=== PATIENT | female | born 1990 | race Caucasian/White ===

== ENCOUNTER 2016-09-11 18:45 | Emergency (ER) | payer BC ==
[2016-09-11] MEDS ORDERED: Ondansetron ODT TAB* 4 MG PO ONE ×2 (18:55→22:16)
[2016-09-11] MEDS ORDERED: Metoclopramide IV* 5 MG/ML 2 ML VIAL IV ONE (19:22)
[2016-09-11] MEDS ORDERED: NS 0.9% 1000 ML* 1,000 ML IV SCH ×2 (19:30→21:30)
--- NOTE | 2016-09-11 20:45 | UC ---
Abdominal Pain Female HPI - HPI Summary HPI Summary: SUDDEN ONSET OF N/V/D AT 1:30PM TODAY AFTER EATING AT [employer] THIS MORNING. HAS WAVES OF ABDOMINAL PAIN AND CRAMPING. CAN NOT KEEP ANYTHING DOWN MY MOUTH. IS HEAVING AND GAGGING. NO FEVER. - History of Current Complaint Chief Complaint: UCGI Stated Complaint: VOMITING, AND SHORTNESS OF BREATH Time Seen by Provider: 09/11/16 18:54 Hx Obtained From: Patient, Family/Driveway Sealer - AUNT Hx Last Menstrual Period: 1 weeka ago Onset/Duration: Sudden Onset, Lasting Hours, Still Present Timing: Constant Severity Initially: Moderate Severity Currently: Severe Pain Intensity: 8 Pain Scale Used: 0-10 Numeric Location: Diffuse Radiates: No Character: Cramping, Sharp Aggravating Factor(s): Nothing Alleviating Factor(s): Nothing Associated Signs and Symptoms: Positive: Back Pain, Decreased Appetite, Nausea, Vomiting, Diarrhea. Negative: Fever, Cough, Urinary Symptoms Allergies/Adverse Reactions: Allergies Allergy/AdvReac Type Severity Reaction Status Date / Time DUST MITE PROTEINS Allergy Itching Uncoded 04/08/16 19:09 Seasonl and Environmentasl Allergy Congestion Uncoded 09/11/16 19:05 Allergie PMH/Surg Hx/FS Hx/Imm Hx Previously Healthy: Yes Endocrine History Of: Denies: Diabetes, Thyroid Disease Cardiovascular History Of: Denies: Cardiac Disorders, Hypertension Respiratory History Of: Denies: COPD, Asthma GI/ History Of: Denies: Ulcer - Surgical History Surgical History: Yes Surgery Procedure, Year, and Place: TONSILS - Family History Known Family History: Positive: Hypertension, Diabetes Negative: Cardiac Disease - Social History Alcohol Use: None Substance Use Type: None Smoking Status (MU): Never Smoked Tobacco Review of Systems Constitutional: Negative Respiratory: Negative Cardiovascular: Negative Gastrointestinal: Abdominal Pain, Vomiting, Diarrhea, Other - NAUSEA Genitourinary: Negative All Other Systems Reviewed And Are Negative: Yes Physical Exam Triage Information Reviewed: Yes Appearance: Well-Nourished, Pain Distress - MODERATE - BREATHING HEAVILY, RETCHING, CLUTCHING BELLY Vital Signs: Initial Vital Signs Temp 97.5 F 09/11/16 18:56 Pulse 100 09/11/16 18:56 Resp 20 09/11/16 18:56 BP 108/80 09/11/16 18:56 Pulse Ox 100 09/11/16 18:56 Vital Signs Reviewed: Yes Eyes: Positive: Conjunctiva Clear ENT: Positive: Hearing grossly normal Neck: Positive: Supple Respiratory Exam: Normal Cardiovascular: Positive: Tachycardia Abdomen Description: Positive: Soft, Guarding - VOLUNTARY, Other: - MILDLY TENDER DIFFUSELY. Negative: CVA Tenderness (R), CVA Tenderness (L), Distended Bowel Sounds: Positive: Present Musculoskeletal: Positive: No Edema Neurological: Positive: Alert Psychological: Positive: Normal Response To Family, Age Appropriate Behavior Re-Evaluation - Re-Evaluation First Eval Re-Evaluation Time: 20:43 - FEELS BETTER AFTER 10MG REGLAN IV AND 600ML NS. RETCHING, GAGGING, WAVES OF ABDOMINAL PAIN RESOLVED Change: Improved Second Eval Re-Evaluation Time: 21:35 - REQUESTING ANOTHER 1L NS Change: Improved Third Eval Re-Evaluation Time: 22:05 - MUCH BETTER AFTER 2ND L NS. READY FOR D/C HOME Change: Improved Abd Pain Female Course/Dx - Course Course Of Treatment: PT FEELS MUCH IMPROVED AFTER 2L NS AND 10MG REGLAN. ADVISED CLEAR LIQUIDS AND BLAND DIET. NOTE FOR WORK PROVIDED. ZOFRAN NEEDED. FOLLOW-UP IF NOT CONTINUING TO IMPROVE. - Differential Dx/Diagnosis Provider Diagnoses: ACUTE GASTROENTERITIS Discharge - Discharge Plan Condition: Stable Disposition: HOME Prescriptions: Ondansetron ODT TAB* [Zofran Odt TAB*] 4 mg PO Q6H PRN #20 tab.odt PRN Reason: Nausea/Vomiting Patient Education Materials: Gastroenteritis (ED), Acute Nausea and Vomiting ( ED) Forms: *Work Release Additional Instructions: ENSURE ADEQUATE HYDRATION. CLEAR LIQUIDS, BLAND DIET. AVOID CAFFEINE, DAIRY, GREASY, SPICY FOODS. ONCE YOU ARE TOLERATING CLEAR LIQUIDS YOU CAN ADVANCE TO SIMPLE, BLAND FOODS. CALL THE NUMBER BELOW FOR ASSISTANCE IN ESTABLISHING WITH A PCP An additional resource available to assist in finding the appropriate physician for your health care needs is the [facility] ([facility]). You may contact them by calling [phone].
[2016-09-11 22:42] VITALS: BP 111/59
== END 2016-09-11 23:18 | disposition left against medical advice (07) ==
LOC: UCEAST 18:45
DX: K52.9 Noninfective gastroenteritis and colitis, unspecified (principal)
CPT/HCPCS: 96360; 96361; 96374; 99213; G0463

== ENCOUNTER 2016-09-11 23:28 | Emergency (ER) | payer BC ==
[2016-09-12] MEDS ORDERED: NS 0.9% 1000 ML* 2,000 ML IV ONE (01:14)
--- NOTE | 2016-09-12 01:39 | ED ---
Abdominal Pain/Female - HPI Summary HPI Summary: Patient presents with nausea, vomiting and diarrhea for 12 hours. She was seen and evaluated at [facility] today and diagnosed with gastroenteritis. Her symptoms have continued. She denies fever, chills, SOB, LOZA, CP or constipation. - History of Current Complaint Chief Complaint: EDNauseaVomitDiarrh Stated Complaint: VOMITING/SENT FROM [facility] Time Seen by Provider: 09/12/16 01:04 Hx Obtained From: Patient Hx Last Menstrual Period: 1 weeka ago ?: No Onset/Duration: Sudden Onset Timing: Constant Severity Initially: Severe Severity Currently: Mild Pain Intensity: 6 Location: Diffuse Radiates: No Character: Dull Aggravating Factor(s): Nothing Alleviating Factor(s): Nothing Associated Signs and Symptoms: Positive: Nausea, Vomiting, Diarrhea Allergies/Adverse Reactions: Allergies Allergy/AdvReac Type Severity Reaction Status Date / Time DUST MITE PROTEINS Allergy Itching Uncoded 09/11/16 23:37 Seasonl and Environmentasl Allergy Congestion Uncoded 09/11/16 23:37 Allergie PMH/Surg Hx/FS Hx/Imm Hx Previously Healthy: Yes Endocrine/Hematology History: Denies: Hx Diabetes, Hx Thyroid Disease Cardiovascular History: Denies: Hx Hypertension Respiratory History: Denies: Hx Asthma, Hx Chronic Obstructive Pulmonary Disease (COPD) GI History: Denies: Hx Ulcer - Surgical History Surgery Procedure, Year, and Place: TONSILS Infectious Disease History: No Infectious Disease History: Denies: Hx Clostridium Difficile, Hx Hepatitis, Hx Human Immunodeficiency Virus (HIV), Hx Shingles, Hx Tuberculosis, Hx Known/Suspected VRE, Hx Known/ Suspected VRSA, History Other Infectious Disease, Traveled Outside the [place] in Last 30 Days - Family History Known Family History: Positive: Hypertension, Diabetes Negative: Cardiac Disease - Social History Occupation: Employed Full-time Lives: With Family Alcohol Use: None Substance Use Type: Reports: None Smoking Status (MU): Never Smoked Tobacco Review of Systems Negative: Fever, Chills Negative: Sore Throat Negative: Chest Pain Negative: Shortness Of Breath Positive: Abdominal Pain - diffuse, Vomiting, Diarrhea, Nausea Positive: no symptoms reported Negative: Myalgia Negative: Bruising Negative: Headache All Other Systems Reviewed And Are Negative: Yes Physical Exam - Summary Physical Exam Summary: Patient is laying on stretcher in no acute distress. She engages easily and happily relays her symptoms. Triage Information Reviewed: Yes Vital Signs On Initial Exam: Initial Vitals Temp Pulse Resp BP Pulse Ox 100 F 109 18 122/61 100 09/11/16 23:34 09/11/16 23:34 09/11/16 23:34 09/11/16 23:34 09/11/16 23:34 Vital Signs Reviewed: Yes Appearance: Positive: Well-Appearing, No Pain Distress, Obese Skin: Positive: Warm, Skin Color Reflects Adequate Perfusion, Dry, Soft Head/Face: Positive: Normal Head/Face Inspection Eyes: Positive: EOMI, MAGALI, Conjunctiva Clear ENT: Positive: Hearing grossly normal, Pharynx normal Neck: Positive: Supple, Nontender, No Lymphadenopathy Respiratory/Lung Sounds: Positive: Clear to Auscultation, Breath Sounds Present Cardiovascular: Positive: RRR - on exam Abdomen Description: Positive: Nontender - Patient is non-tender when I palpate all four quadrants., Soft. Negative: CVA Tenderness (R), CVA Tenderness (L), Distended, Guarding, Hepatomegaly, McBurney's Point Tenderness, Splenomegaly Bowel Sounds: Positive: Present Musculoskeletal: Negative: Edema Left, Edema Right Neurological: Positive: Sensory/Motor Intact, Alert, Oriented to Person Place, Time, Normal Gait Psychiatric: Positive: Affect/Mood Appropriate AVPU Assessment: Alert Diagnostics - Vital Signs Vital Signs Temp Pulse Resp BP Pulse Ox 09/11/16 23:34 100 F 109 18 122/61 100 - Laboratory Result Diagrams: 09/12/16 01:25 09/12/16 01:25 Lab Statement: Any lab studies that have been ordered have been reviewed, and results considered in the medical decision making process. Abdominal Pain Fem Course/Dx - Diagnoses Differential Diagnosis: Positive: Bowel Obstruction, Constipation, Diverticulitis, Gall Bladder Disease, Ovarian Cyst, Pneumonia, Urinary Tract Infection Provider Diagnoses: Gastroenteritis Discharge - Discharge Plan Condition: Stable Disposition: HOME Patient Education Materials: Gastroenteritis (ED) Referrals: [facility] [place] [facility] [Outside] Additional Instructions: Please call the number provided to establish care with a regular provider. Use the medication provided by [facility] to help control your nausea. Drink extra fluids and consume a bland diet until your symptoms improve.
[2016-09-12 01:42] LABS: Hematocrit 38 % (35-47); Mean Corpuscular HGB Conc 34 g/dl (31-36); Mean Corpuscular Hemoglobin 30 pg (27-31); Mean Corpuscular Volume 87 fL (80-97); Mean Platelet Volume 8 um3 (7.4-10.4); Red Cell Distribution Width 13 % (10.5-15); White Blood Count 6.7 10^3/ul (3.5-10.8)
[2016-09-12 01:54] LABS: Albumin 4.2 g/dL (3.2-5.2); BUN/Creatinine Ratio 14.5 (8-20); C Reactive Protein 24.54 mg/L (< 5.00); Calcium 8.7 mg/dL (8.6-10.3); EGFR African American 109.6 (>60); EGFR Non-African American 85.2 (>60); Globulin 3.2 g/dL (2-4); Potassium 3.7 mmol/L (3.5-5.0); Total Bilirubin 0.6 mg/dL (0.2-1.0); Total Protein 7.4 g/dL (6.4-8.9)
[2016-09-12 02:16] VITALS: BP 126/73
[2016-09-12 02:21] LABS: Urine Bilirubin Negative (Negative); Urine Glucose Negative (Negative); Urine Nitrite Negative (Negative)
== END 2016-09-12 02:15 | disposition home or self-care (01) ==
LOC: ED 23:28
DX: K52.9 Noninfective gastroenteritis and colitis, unspecified (principal); R11.2 Nausea with vomiting, unspecified; R19.7 Diarrhea, unspecified; R10.9 Unspecified abdominal pain
CPT/HCPCS: 36415; 80053; 81003; 85025; 86140; 96360; 99282

== ENCOUNTER 2016-10-28 07:20 | Emergency (ER) | payer BC ==
[2016-10-28 07:37] VITALS: BP 129/83
--- NOTE | 2016-10-28 08:48 | UC ---
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 pt also reports that grey is having aggravted pain in the 2 lower teeth in which she has been having recurrent infections for some time. - History of Current Complaint Chief Complaint: UCGeneralIllness Stated Complaint: COUGH, CONGEST Time Seen by Provider: 10/28/16 07:47 Hx Obtained From: Patient Hx Last Menstrual Period: 09/29/16 Onset/Duration: Gradual Onset, Lasting Days - 6, Still Present Severity: Moderate Pain Intensity: 5 Cough: Nonproductive Associated Signs & Symptoms: Positive: Sinus Discomfort, Nasal Discharge, Fever - subjective. Negative: Wheezing - Allergies/Home Medications Allergies/Adverse Reactions: Allergies Allergy/AdvReac Type Severity Reaction Status Date / Time DUST MITE PROTEINS Allergy Itching Uncoded 09/11/16 23:37 Seasonl and Environmentasl Allergy Congestion Uncoded 09/11/16 23:37 Allergie Home Medications: Home Medications Benzonatate CAP* [Tessalon 100 MG CAP*] 10/28/16 [History] PMH/Surg Hx/FS Hx/Imm Hx Previously Healthy: Yes Endocrine History Of: Denies: Diabetes, Thyroid Disease Cardiovascular History Of: Denies: Cardiac Disorders, Hypertension Respiratory History Of: Denies: COPD, Asthma GI/ History Of: Denies: Ulcer - Surgical History Surgical History: Yes Surgery Procedure, Year, and Place: TONSILS - Family History Known Family History: Positive: Hypertension, Diabetes Negative: Cardiac Disease - Social History Occupation: Employed Full-time Alcohol Use: None Substance Use Type: None Smoking Status (MU): Never Smoked Tobacco Review of Systems Constitutional: Fever Eyes: Negative ENT: Ear Ache, Nasal Discharge Respiratory: Cough Gastrointestinal: Other - nausea Genitourinary: Negative Musculoskeletal: Negative Neurological: Headache - sinusa All Other Systems Reviewed And Are Negative: Yes Physical Exam Triage Information Reviewed: Yes Appearance: Well-Appearing, No Pain Distress, Well-Nourished Vital Signs: Initial Vital Signs Temp 97.6 F 10/28/16 07:28 Pulse 92 10/28/16 07:28 Resp 18 10/28/16 07:28 BP 129/83 10/28/16 07:28 Pulse Ox 99 10/28/16 07:28 Vital Signs Reviewed: Yes Eyes: Positive: Conjunctiva Clear. Negative: Discharge ENT: Positive: Hearing grossly normal, Pharynx normal, Nasal congestion, Nasal drainage, TMs normal. Negative: Tonsillar exudate, Trismus, Muffled/hoarse voice Dental: Positive: Percussion Tenderness @ - 18, 30, Abscess @ - 18 Neck: Positive: Supple, Nontender, Enlarged Nodes @ Respiratory: Positive: Lungs clear, Normal breath sounds, No respiratory distress, No accessory muscle use, Expiration - prolonged at bases Cardiovascular: Positive: RRR, No Murmur Abdomen Description: Positive: Nontender, Soft. Negative: Distended, Guarding Bowel Sounds: Positive: Present Musculoskeletal Exam: Normal Neurological: Positive: Alert, Muscle Tone Normal Psychological: Positive: Age Appropriate Behavior Skin Exam: Normal Throat Pain/Nasal Course/Dx - Differential Dx/Diagnosis Differential Diagnosis/HQI/PQRI: Sinusitis, URI, Other - bronchospasm, sinusitis , Provider Diagnoses: sinuitis, bronchospasm, dental abscess Discharge - Discharge Plan Condition: Stable Disposition: HOME Prescriptions: Albuterol HFA INHALER* [Ventolin HFA Inhaler*] 2 puff INH Q4H PRN #1 mdi PRN Reason: Sob/Wheezing Amoxicillin/Clavulanate TAB* [Augmentin TAB 875*] 875 mg PO BID #20 tab Benzonatate CAP* [Tessalon 100 MG CAP*] 100 mg PO TID PRN #30 cap PRN Reason: Cough guaiFENesin ER TAB [Mucinex*] 600 mg PO BID PRN #1 box PRN Reason: Cough Patient Education Materials: Dental Abscess (ED), Sinusitis (ED) Forms: *Work Release Referrals: No Primary Care Phys,NOPCP [Primary Care Provider] - Additional Instructions: TRY USING THE NETTI POT IN THE MORNINGS DISCUSSED. YOU MUST ALWAYS USE CLEAN WATER. REMEMBER, POSTURE IS AN IMPORTANT FACTOR IN SINUS DRAINAGE. MOVE YOUR NECK, BREATHE. INHALED BRONCHODILATORS: You have received a prescription for an inhaled bronchodilator -- a medication which stimulates the airways in the lung to dilate. This improves the flow of air in asthma, bronchitis, and emphysema. These medicines have some similarity to adrenaline, and can cause similar side effects: shakiness, racing heart, and a sense of nervousness. These side effects decrease with time. Contact your doctor if these side effects are severe. Do not over-use the medicine. Too-frequent use of the inhaler may make it ineffective. Call your doctor if the inhaler is not controlling your symptoms at the prescribed doses. EXPECTORANT MEDICATION: WE SENT IN A SCRIPT FOR MUCINEX SO THAT IT IS EASIER FOR YOU TO PICK THE RIGHT MED AT THE PHARMACY. HOWEVER, YOU CAN ALSO GO TO THE [employer] [facility] AND BUY PLAIN GUAIFENESIN WITHOU BINDERS OR FILLERS. An expectorant medicine has been prescribed. This type of drug makes mucous thinner, helping the sinuses, nose, and bronchial tubes to remain free of pus and mucous. Expectorants make a cough less severe and more comfortable, and help infected sinuses drain. In general, antihistamines defeat the purpose of the expectorant by making mucous thicker. They should be avoided unless specifically recommended by your physician. TESSALON PERLES: You have received a prescription for Tessalon Perles (benzonatate). This is a non-narcotic medicine for relief of cough. It usually works in about 15- 20 minutes and lasts around four hours. Tessalon Perles should be swallowed. They should not be chewed or dissolved in the mouth (this can produce temporary numbing of the mouth and choking can occur). If you develop any adverse effects such as wheezing, shortness of breath, hives, rash, itching, or lightheadedness, please return at once. AUGMENTIN: Augmentin is a mixture of amoxicillin and clavulanate. Amoxicillin is a member of the penicillin family. It covers the germs likely to cause ear, bronchial, and urinary infections better than plain penicillin. The addition of clavulanate allows it to cover staph infections of the skin, as well as resistant cases of ear and sinus infections. Your physician has chosen Augmentin for you because of the special nature of your situation. Augmentin is best taken with meals. Nausea after taking the medication is rare, but can occur. Diarrhea can occur, particularly in small children. Vaginal yeast infections, and oral thrush in infants are also common. Contact your physician if these problems occur. Allergy to penicillins is common. If you have had an allergic reaction to any drug of the penicillin family, you should never take any other penicillin. Notify your doctor at once if you develop hives, shortness of breath, swelling, or faintness. ANY TIME YOU TAKE AN ANTIBIOTIC, IT IS IMPORTANT TO REPLENISH THE BODY'S BALANCE OF "GOOD" BACTERIA BY EATING HIGH QUALITY CULTURED FOOD SUCH YOGURT, SAURKRAUT OR DAYSI CHI AND/OR TAKING A PROBIOTIC SUPPLEMENT. FOLLOW-UP CARE: You should establish with a private physician for follow-up care. If you are unable to get a timely appointment, or if you are worsening, call us or return for re-evaluation. An additional resource available to assist in finding the appropriate physician for your health care needs is the Physician Referral Center. You may contact them by calling [phone]. HAVE A GREAT VACATION!!
== END 2016-10-28 08:45 | disposition home or self-care (01) ==
LOC: UCEAST 07:20
DX: J32.9 Chronic sinusitis, unspecified (principal); J98.01 Acute bronchospasm; K04.7 Periapical abscess without sinus
CPT/HCPCS: 99212; G0463